=== PATIENT | male | born 1950 | race Caucasian/White ===

== ENCOUNTER 2016-08-04 07:44 | Day surgery (SDC) | payer OTHER, MEDICARE, BC ==
[~2016-08-04 07:44] MED LIST: LACTATED RINGERS 1,000 ML IV SCH
[2016-08-04] MEDS ORDERED: IV START KIT ONE (07:45)
[2016-08-04] MEDS ORDERED: LACTATED RINGERS 1,000 ML ONE (07:45)
[2016-08-04] MEDS ORDERED: FENTANYL 100 MCG/2 ML VIAL ONE (08:07)
[2016-08-04] MEDS ORDERED: PROPOFOL 40 ML IV ONE (08:07)
== END 2016-08-04 10:10 | disposition home or self-care (01) ==
LOC: SDC 07:44
PROVIDERS: ATTEND Internal Medicine Gastroenterology
PROC: 0DJD8ZZ Inspection of Lower Intestinal Tract, Via Natural or Artificial Opening Endoscopic (ICD-10-PCS; principal; 2016-08-04)
DX: Z12.11 Encounter for screening for malignant neoplasm of colon (principal); Z86.010 Personal history of colon polyps; Z87.891 Personal history of nicotine dependence; E66.9 Obesity, unspecified; E78.5 Hyperlipidemia, unspecified; G47.33 Obstructive sleep apnea (adult) (pediatric); Z79.82 Long term (current) use of aspirin; Z68.41 Body mass index [BMI] 40.0-44.9, adult
CPT/HCPCS: 45378; J3010; J7120

== ENCOUNTER 2016-08-06 10:57 | Outpatient (CLI) | payer OTHER, MEDICARE, BC | END 2016-08-06 10:58 | disposition home or self-care (01) | LOC: NC 10:57 | PROVIDERS: ATTEND Family Medicine | DX: E66.9 Obesity, unspecified (principal); Z71.3 Dietary counseling and surveillance; E74.9 Disorder of carbohydrate metabolism, unspecified; E78.2 Mixed hyperlipidemia; Z68.41 Body mass index [BMI] 40.0-44.9, adult ==

== ENCOUNTER 2016-08-20 11:03 | Outpatient (CLI) | payer OTHER, MEDICARE, BC | END 2016-08-20 11:04 | disposition home or self-care (01) | LOC: NC 11:03 | PROVIDERS: ATTEND Family Medicine | DX: E74.9 Disorder of carbohydrate metabolism, unspecified (principal); Z71.3 Dietary counseling and surveillance; E78.2 Mixed hyperlipidemia; E66.9 Obesity, unspecified; Z68.41 Body mass index [BMI] 40.0-44.9, adult ==